=== PATIENT | female | born 1970 | race African-American/Black ===

== ENCOUNTER 2024-01-14 09:35 | Emergency (ER) | payer MEDICAID, OTHER ==
[~2024-01-14] VITALS: Ht 172.7 cm; Wt 76.0 kg
[2024-01-14] MEDS: IPRATROPIUM BROMIDE (0.02%) 0.5MG/2.5ML NEB HHN STA (09:40)
[2024-01-14 10:20] VITALS: PULSE 84; RESP 24; O2SAT 99
[2024-01-14] MEDS: ALBUTEROL (0.083%) 2.5MG/3ML NEB HHN SCH (10:20)
[2024-01-14 10:21] LABS: EOSINOPHILS % 3.1 % (0.0-5.0); HEMATOCRIT. 35.8 % (36.0-48.0); HEMOGLOBIN. 11.6 g/dL (12.0-16.0); LYMPHOCYTES % 18.6 % (20.0-50.0); MEAN CORPUSCULAR HEMOGLOBIN 31.2 pg (28.0-32.0); MEAN CORPUSCULAR HGB CONC 32.3 g/dL (31.0-37.0); MEAN CORPUSCULAR VOLUME 96.7 fL (81.0-99.0); MEAN PLATELET VOLUME 9.6 fl (7.4-10.4); MONOCYTES % 9.1 % (2.0-8.0); NEUTROPHILS % 68.2 % (40.0-76.0); PLATELET 184 x1000/uL (130-400); RED CELL DISTRIBUTION WIDTH 20.5 % (11.6-14.6); WHITE BLOOD COUNT 5.5 x1000/uL (4.5-11.0)
[2024-01-14] MEDS: METHYLPREDNISOLONE SOD SUCC 125MG/2ML (ACT-O-VIAL) IV STA (10:27)
[2024-01-14 10:34] VITALS: BP 128/69; PULSE 89; RESP 20; TEMP 98.2
[2024-01-14 10:59] LABS: ALANINE AMINOTRANSFERASE 49 IU/L (10-49); ALBUMIN 3.7 g/dL (3.2-4.8); ASPARTATE AMINOTRANSFERASE 105 IU/L (<34); BILIRUBIN TOTAL 0.6 mg/dL (0.1-1.0); CALCIUM 8.4 mg/dL (8.7-10.4); CARBON DIOXIDE 21 mEq/L (21-32); CHLORIDE 106 mEq/L (98-107); CREATININE 0.8 mg/dL (0.6-1.0); GLUCOSE 86 mg/dL (70-105); POTASSIUM 4.4 mEq/L (3.5-5.1); PROTEIN TOTAL 7.3 g/dL (6.0-8.3); SODIUM 136 mEq/L (136-145); TROPONIN I HIGH SENSITIVITY 31 ng/L (3.0-34); UREA NITROGEN BLOOD 21 mg/dL (9-23)
[2024-01-14] MEDS: ASPIRIN 81MG TABLET PO ONE (11:53)
[2024-01-14] MEDS: FUROSEMIDE 20MG/2ML VIAL IVP ONE (12:05)
[2024-01-14] MEDS ORDERED: FURO-151 MT (14:14)
== END 2024-01-14 14:31 | disposition home or self-care (01) ==
LOC: ER 09:35 → CANBEDREQ 14:29 → ER 14:31
DX: I11.0 Hypertensive heart disease with heart failure (principal); I50.9 Heart failure, unspecified; J44.1 Chronic obstructive pulmonary disease with (acute) exacerbation; R07.89 Other chest pain; Z20.822 Contact with and (suspected) exposure to COVID-19
CPT/HCPCS: 80053; 83880; 85025; 85610; 85730; 84484; 36415; 71045; 93005; 94644; 96374; 96375; 99291; 87426; Z7610 ×4; J1940; J2930